=== PATIENT | male | born 1985 | race Caucasian/White ===

== ENCOUNTER 2020-08-11 06:09 | Emergency (ER) | payer OTHER ==
[2020-08-11] MEDS ORDERED: predniSONE 20 MG Tab PO STA (06:38)
--- NOTE | 2020-08-11 06:43 | EDM.PDOC ---
ED HPI GENERAL MEDICAL PROBLEM - General Chief Complaint: Lower Extremity Injury/Pain Stated Complaint: LEFT FOOT PAIN/PT HAS GOUT Time Seen by Provider: 08/11/20 06:19 Source of Information: Reports: Patient History Limitations: Reports: No Limitations - History of Present Illness INITIAL COMMENTS - FREE TEXT/NARRATIVE: Mr. King is a very pleasant 35-year-old gentleman who presents with pain to his lateral left ankle since this past , 08/05/2020, followed by pain, swelling, and erythema to his left first MTP since 08/06/2020. He states that his left ankle may have been injured by "tweaking" it, but he denies injury to his first MTP. The patient states that he has not taken any [id number] or home remedies to try to treat his symptoms. The patient states that he has had similar symptoms, in both first MTPs, more often in the left than the right, over the past 3 years, however, the frequency, severity, and duration seem to be increasing. He states that he has not previously undergone medical evaluation other than going to a walk-in clinic, which he states he does not always do. He believes that he is usually treated with Indocin, and, possibly once, a steroid. He is not familiar with colchicine. He has never undergone a joint aspiration. Here in the ED, the patient is found to be hemodynamically stable, afebrile, saturating 98% on room air. Other than the above joint pain and swelling, the patient denies having a recent fever, chills, sore throat, ear pain, nasal or sinus congestion, cough, dyspnea, chest pain, palpitations, nausea, vomiting, constipation, diarrhea, abdominal pain, urinary symptoms, recent weight gain or weight loss, recent bloody bowel movements or black bowel movements, headaches, or rashes. The patient does not have a PCP. He has not received an influenza vaccine this season, but agreed to get one here in the ED. Left Foot Pain Score (Numeric/FACES): 10 - Related Data Allergies Allergy/AdvReac Type Severity Reaction Status Date / Time No Known Allergies Allergy Verified 08/11/20 06:21 Home Meds: Home Meds predniSONE [Prednisone] 10 mg PO ASDIRECTED #25 tablet 08/11/20 [Rx] Past Medical History Musculoskeletal History: Reports: Fracture (left elbow, right wrist), Gout (presumed, not confirmed) - Past Surgical History HEENT Surgical History: Reports: Oral Surgery (dental extractions) Musculoskeletal Surgical History: Reports: Other (See Below) (Left elbow pinning, right wrist pinning) Social & Family History - Tobacco Use Tobacco Use Status *Q: Never Tobacco User Second Hand Smoke Exposure: No - Caffeine Use Caffeine Use: Reports: None - Alcohol Use Alcohol Use History: Yes Alcohol Use Frequency: Socially (rarely to excess) - Recreational Drug Use Recreational Drug Use: No - Living Situation & Occupation Living situation: Reports: , with Spouse, with Family (2 kids) Occupation: Employed ("Self-employed") Review of Systems - Review of Systems Review Of Systems: Comprehensive ROS is negative, except as noted in HPI. ED EXAM, GENERAL - Physical Exam Exam: See Below Exam Limited By: No Limitations General Appearance: Alert, WD/WN, No Apparent Distress Extremities: Other (No visible abnormality to the left ankle, when compared to the right, such as swelling, erythema, ecchymosis, or abrasion, however, the patient reports tenderness to palpation over the lateral malleolus, particularly the anterior lateral malleolus. No tenderness to palpation of the anterior or posterior syndesmosis, or medial malleolus. Pain is not induced in the ankle with PROM. There is swelling, erythema, calor, and tenderness to palpation of the left first MTP joint. Pain is induced in the joint with PROM, and the patient is reluctant to actively move the joint. Normal sensation to all toes, including the first toe, with normal capillary refill.) Course - Vital Signs Last Recorded V/S: Last Vital Signs Temp 37.0 C 08/11/20 06:18 Pulse 66 08/11/20 06:18 Resp 20 08/11/20 06:18 BP 130/73 08/11/20 06:18 Pulse Ox 98 08/11/20 06:18 - Orders/Labs/Meds Orders: Active Orders 24 hr Category Date Time Status Influenza Vaccine Charge [RC] .DISCHARGE Care 08/11/20 06:33 Active Meds: Medications Discontinued Medications Generic Name Dose Route Start Last Admin Trade Name Freq PRN Reason Stop Dose Admin Influenza Virus Vaccine 60 mcg 08/11/20 06:45 08/11/20 06:57 Fluzone Quad Syringe IM 08/11/20 06:46 60 mcg .ONCE ONE Administration Prednisone 40 mg 08/11/20 06:38 08/11/20 06:55 Prednisone PO 08/11/20 06:39 40 mg ONETIME STA Administration - Re-Assessments/Exams Free Text/Narrative Re-Assessment/Exam: 08/11/20 06:39 As above, the patient presents with pain to his lateral left ankle since , and pain and swelling to his left great MTP joint since Sunday. On examination, he likely has a mild sprain to his lateral ankle, but the swelling, erythema, and tenderness of his left great MTP joint is consistent with gout. I contacted Dr. Márquez to see if he would prefer to see the patient in his office so that he could aspirate the patient's MTP joint for conformation of the diagnosis prior to treatment, however, he does not like to aspirate the MTP, since he typically gets so little fluid out. He recommended treatment with steroids. I have therefore ordered 40 mg of oral prednisone, and will write the patient a prescription for a tapering dose over the next 10 days. The downside for treating the patient with steroids is that his history indicates an increasing frequency of flares, and if the patient returns soon with another flare, then steroids would not be a good choice. In that case, the provider might want to consider colchicine. The patient will be given an influenza vaccine prior to discharge. Departure - Departure Time of Disposition: :55 Disposition: Home, Self-Care 01 Condition: Good Clinical Impression: Gout flare - Discharge Information *PRESCRIPTION DRUG MONITORING PROGRAM REVIEWED*: Not Applicable *COPY OF PRESCRIPTION DRUG MONITORING REPORT IN PATIENT RAN: Not Applicable Prescriptions: predniSONE [Prednisone] 10 mg PO ASDIRECTED #25 tablet Instructions: Low-Purine Eating Plan Referrals: PCP,Not In Area [Primary Care Provider] - Raza Márquez MD [Physician] - Forms: ED Department Discharge Additional Instructions: You were seen in the emergency room for pain to your left ankle since , and pain, swelling, and redness to your left big toe joint since Sunday. Based on your history and physical examination, you are most likely suffering from a sprain of your left ankle, and a flare of gout to your big toe joint. Your case was discussed with the Orthopedic Surgeon Dr. Raza Márquez, who recommended treatment with steroids. You have been started on the steroid medicine prednisone, and a prescription for prednisone has been sent to the [facility], located in the [facility] grocery store. Take 3 tablets of prednisone every morning, starting tomorrow morning, , 08/12/2020, for 5 days, followed by 2 tablets every morning starting Sunday morning, 08/17/2020, as prescribed. It is very important that while you are taking prednisone, that you not also take an NSAID, such as aspirin, ibuprofen (Advil, Motrin) or naproxen (Aleve). If your symptoms fail to improve within the next few days, please follow-up with Dr. Márquez. If any other problems, please do not hesitate to return to the ER. You were given an influenza vaccine during your ER visit. Sepsis Event Note (ED) - Evaluation Sepsis Screening Result: No Definite Risk - Focused Exam Vital Signs: Vital Signs Temp Pulse Resp BP Pulse Ox 08/11/20 06:18 37.0 C 66 20 130/73 98 - My Orders Last 24 Hours: My Active Orders 08/11/20 06:33 Influenza Vaccine Charge [RC] .DISCHARGE - Assessment/Plan Last 24 Hours: My Active Orders 08/11/20 06:33 Influenza Vaccine Charge [RC] .DISCHARGE
[2020-08-11] MEDS ORDERED: FLU VACC QS2020-21(6MOS UP)/PF 60 MCG/0.5 ML SYRINGE IM ONE (06:45)
== END 2020-08-11 07:20 | disposition home or self-care (01) ==
LOC: JD.ED 06:09
DX: M10.9 Gout, unspecified (principal)
CPT/HCPCS: 90471; 90686; 99283; J7512; G0008